=== PATIENT | female | born 1980 | race Two or more races ===

== ENCOUNTER 2018-10-11 07:42 | Inpatient (IN) | payer OTHER ==
[~2018-10-11] VITALS: Ht 162.6 cm; Wt 90.7 kg
[2018-10-11] MEDS ORDERED: IV NORMAL SALINE 1,000ML 1,000 ML IV SCH (08:11)
[2018-10-11] MEDS ORDERED: ONDANSETRON PF 4 MG/2 ML VIAL. IV ONE (08:15)
[2018-10-11] MEDS ORDERED: ASPIRIN 81 MG TAB.CHEW PO ONE (08:15)
--- NOTE | 2018-10-11 08:17 | PHYS DOC ---
Past History Past Medical History: Hypothyroid, Other Past Surgical History: No Surgical History Alcohol Use: Occasionally Drug Use: None Adult General Chief Complaint Chief Complaint: CHEST PAIN HPI HPI Patient is a 38 year old female who presents with complaint of right-sided chest pain. Symptoms started approximately 30 minutes prior to arrival. No previous history of similar symptoms. States that she is having dull pain to the right upper chest that radiates to the right shoulder. Patient states that she has associated numbness in the right upper extremity but denies any weakness or swelling. Denies history of similar symptoms. Has history of hypothyroidism and PCOS. No history of smoking. Denies family history of known cardiac disease. Denies any known exacerbating or alleviating factors. Denies any associated shortness of breath, diaphoresis, or nausea. Has not taken any medications for her symptoms. Review of Systems Review of Systems Constitutional: Denies fever or chills [] Eyes: Denies change in visual acuity, redness, or eye pain [] HENT: Denies nasal congestion or sore throat [] Respiratory: Denies cough or shortness of breath [] Cardiovascular: Chest pain, denies edema[] GI: Denies abdominal pain, nausea, vomiting, bloody stools or diarrhea [] : Denies dysuria or hematuria [] Musculoskeletal: Denies back pain or joint pain [] Integument: Denies rash or skin lesions [] Neurologic: Numbness in right upper extremity, denies headache or focal weakness [] All other systems were reviewed and found to be within normal limits, except as documented in this note. Current Medications Current Medications Current Medications Medications (Trade) Dose Ordered Sig/[facility] Start Time Stop Time Status Last Admin Dose Admin Aspirin (Children'S Aspirin) 324 mg 1X ONCE 10/11/18 08:15 10/11/18 08:16 UNV Fentanyl Citrate (Fentanyl 2ml Vial) 50 mcg PRN Q15MIN PRN 10/11/18 08:15 10/12/18 08:14 UNV Ondansetron HCl (Zofran) 4 mg 1X ONCE 10/11/18 08:15 10/11/18 08:16 UNV Sodium Chloride 1,000 ml @ 1,000 mls/hr Q1H 10/11/18 08:11 10/11/18 09:10 UNV Allergies Allergies Allergies Coded Allergies Type Severity Reaction Last Updated Verified No Known Drug Allergies 10/11/18 No Physical Exam Physical Exam Constitutional: Well developed, well nourished, no acute distress, non-toxic appearance. [] HENT: Normocephalic, atraumatic, bilateral external ears normal, oropharynx moist, no oral exudates, nose normal. [] Eyes: PERRLA, EOMI, conjunctiva normal, no discharge. [] Neck: Normal range of motion, no tenderness, supple, no stridor. [] Cardiovascular:Heart rate regular rhythm, no murmur [] Lungs & Thorax: Bilateral breath sounds clear to auscultation [] Abdomen: Bowel sounds normal, soft, no tenderness, no masses, no pulsatile masses. [] Skin: Warm, dry, no erythema, no rash. [] Back: No tenderness, no CVA tenderness. [] Extremities: No tenderness, no cyanosis, no clubbing, ROM intact, no edema. [] Neurologic: Alert and oriented X 3, normal motor function, normal sensory function, no focal deficits noted. [] Current Patient Data Vital Signs Vital Signs Date Time Temp Pulse Resp B/P (MAP) Pulse Ox O2 Delivery O2 Flow Rate FiO2 10/11/18 07:46 98.3 67 18 98 Room Air Lab Results Laboratory Tests Test 10/11/18 08:19 White Blood Count 4.6 x10^3/uL Red Blood Count 4.66 x10^6/uL Hemoglobin 13.6 g/dL Hematocrit 39.8 % Mean Corpuscular Volume 85 fL Mean Corpuscular Hemoglobin 29 pg Mean Corpuscular Hemoglobin Concent 34 g/dL Red Cell Distribution Width 12.4 % Platelet Count 238 x10^3/uL Neutrophils (%) (Auto) 49 % Lymphocytes (%) (Auto) 41 % Monocytes (%) (Auto) 8 % Eosinophils (%) (Auto) 1 % Basophils (%) (Auto) 1 % Neutrophils # (Auto) 2.3 x10^3uL Lymphocytes # (Auto) 1.9 x10^3/uL Monocytes # (Auto) 0.4 x10^3/uL Eosinophils # (Auto) 0.1 x10^3/uL Basophils # (Auto) 0.0 x10^3/uL D-Dimer ([place]) 0.28 mg/L Sodium Level 141 mmol/L Potassium Level 4.1 mmol/L Chloride Level 105 mmol/L Carbon Dioxide Level 30 mmol/L Anion Gap 6 Blood Urea Nitrogen 12 mg/dL Creatinine 0.9 mg/dL Estimated GFR (Cockcroft-Gault) 69.3 BUN/Creatinine Ratio 13 Glucose Level 109 mg/dL Calcium Level 8.8 mg/dL Magnesium Level 1.9 mg/dL Total Bilirubin 0.6 mg/dL Aspartate Amino Transf (AST/SGOT) 19 U/L Alanine Aminotransferase (ALT/SGPT) 33 U/L Alkaline Phosphatase 89 U/L Creatine Kinase 106 U/L Creatine Kinase MB (Mass) 1.1 ng/mL Creatine Kinase MB Relative Index 1.0 % Troponin I Quantitative < 0.017 ng/mL Total Protein 7.4 g/dL Albumin 3.8 g/dL Albumin/Globulin Ratio 1.1 Current Medications Medications (Trade) Dose Ordered Sig/Ad Route PRN Reason Start Time Stop Time Status Last Admin Dose Admin Aspirin (Children'S Aspirin) 324 mg 1X ONCE PO 10/11/18 08:15 10/11/18 08:19 DC 10/11/18 08:31 Fentanyl Citrate (Fentanyl 2ml Vial) 50 mcg PRN Q15MIN PRN IV PAIN GREATER THAN 3/10 10/11/18 08:15 10/12/18 08:14 10/11/18 08:32 Sodium Chloride 1,000 ml @ 1,000 mls/hr Q1H IV 10/11/18 08:11 10/11/18 09:10 DC 10/11/18 08:29 Ondansetron HCl (Zofran) 4 mg 1X ONCE IV 10/11/18 08:15 10/11/18 08:19 DC 10/11/18 08:31 EKG EKG Interpreted by me: Heart rate 67, sinus rhythm, normal intervals, normal axis, no acute ST/T-wave abnormalities present[] Radiology/Procedures Radiology/Procedures [address] [address] IMAGING REPORT Signed PATIENT: EVA ROBIN ACCOUNT: [id number] : 1980 LOCATION: ER AGE: 38 SEX: F EXAM STATUS: REG ER ORD. PHYSICIAN: BO TRAN MD REASON: chest pain PROCEDURE: PORTABLE CHEST 1V Chest radiograph 10/11/2018 8:16 AM INDICATION: Chest pain COMPARISON: None available TECHNIQUE: Portable upright frontal view of the chest is provided. FINDINGS: The cardiomediastinal silhouette is within normal limits. There are no pleural effusions. There is no pulmonary vascular congestion. There is no pneumothorax. The lungs are clear. No significant osseous abnormality is identified. IMPRESSION: No acute cardiopulmonary process. Electronically signed by: Ron Obregon MD (10/11/2018 8:35 AM) [id number] DICTATED AND SIGNED BY: RON OBREGON MD DATE: 10/11/18 0835 CC: HENRY GOLDBERG DO; BO TRAN MD ~ [] Course & Med Decision Making Course & Med Decision Making Pertinent Labs and Imaging studies reviewed. (See chart for details) Patient was given aspirin in the emergency department and started on fentanyl and Zofran. Despite treatment, the patient states that her pain is only slightly better at this time. Initial lab work negative. Heart score is 2. Due to continued active symptoms of unknown etiology, I recommend that the patient be admitted for further workup of etiology of chest pain. I spoke with Dr. Sinclair who accepted care of patient in hospital.[] Dragon Disclaimer Dragon Disclaimer This electronic medical record was generated, in whole or in part, using a voice recognition dictation system. Departure Departure: Impression: Primary Impression: Chest pain Disposition: ADMITTED INPATIENT Admitting Physician: Germaine Sinclair Condition: STABLE Referrals: HENRY GOLDBERG DO (PCP) Problem Qualifiers Primary Impression: Chest pain Chest pain type: unspecified Qualified Codes: R07.9 - Chest pain, unspecified BO TRAN MD Oct 11, 2018 08:17
[2018-10-11 08:36] LABS: BASO % 1 % (0-3); EOS # 0.1 x10^3/uL (0.0-0.7); EOS % 1 % (0-3); HEMATOCRIT 39.8 % (36.0-47.0); HEMOGLOBIN 13.6 g/dL (12.0-15.5); LYMPH # 1.9 x10^3/uL (1.0-4.8); LYMPH % 41 % (24-48); MEAN CORPUSCULAR HEMOGLOBIN 29 pg (25-35); MEAN CORPUSCULAR HGB CONC 34 g/dL (31-37); MEAN CORPUSCULAR VOLUME 85 fL (79-100); MONO # 0.4 x10^3/uL (0.0-1.1); MONO % 8 % (0-9); NEUT # 2.3 x10^3uL (1.8-7.7); NEUT % 49 % (31-73); PLATELET COUNT 238 x10^3/uL (140-400); RED BLOOD COUNT 4.66 x10^6/uL (3.50-5.40); RED CELL DISTRIBUTION WIDTH 12.4 % (11.5-14.5); WHITE BLOOD COUNT 4.6 x10^3/uL (4.0-11.0)
--- NOTE | 2018-10-11 08:38 | RAD ---
Chest radiograph 10/11/2018 8:16 AM INDICATION: Chest pain COMPARISON: None available TECHNIQUE: Portable upright frontal view of the chest is provided. FINDINGS: The cardiomediastinal silhouette is within normal limits. There are no pleural effusions. There is no pulmonary vascular congestion. There is no pneumothorax. The lungs are clear. No significant osseous abnormality is identified. IMPRESSION: No acute cardiopulmonary process. Electronically signed by: Melissa Stewart MD (10/11/2018 8:35 AM) [id number]
[2018-10-11 08:55] LABS: ALBUMIN 3.8 g/dL (3.4-5.0); ALBUMIN/GLOBULIN RATIO 1.1 (1.0-1.7); CALCIUM 8.8 mg/dL (8.5-10.1); CREATININE 0.9 mg/dL (0.6-1.0); GFR 69.3; MAGNESIUM 1.9 mg/dL (1.8-2.4); POTASSIUM 4.1 mmol/L (3.5-5.1); TOTAL BILIRUBIN 0.6 mg/dL (0.2-1.0); TOTAL PROTEIN 7.4 g/dL (6.4-8.2)
[2018-10-11 10:25] LABS: BACTERIA,URINE MOD /HPF (0-FEW); BILIRUBIN,URINE NEG (NEG); CLARITY,URINE CLEAR; COLOR,URINE YELLOW; GLUCOSE,URINE NEG (NEG); NITRITE,URINE NEG (NEG); RBC,URINE 0 /HPF (0-2); SQUAMOUS EPITHELIAL CELL,UR MOD /LPF; UROBILINOGEN,URINE 0.2 mg/dL (0.2 mg/dL)
[2018-10-11 10:32] VITALS: BP 103/64
[2018-10-11] MEDS ORDERED: LEVO200T PO (11:58)
[2018-10-11] MEDS ORDERED: METF500T16 PO (11:58)
[2018-10-11] MEDS ORDERED: ERGO500027 PO (11:58)
[2018-10-11] MEDS ORDERED: OMEG-33 PO (11:58)
[2018-10-11] MEDS: IV NORMAL SALINE 1,000ML 1,000 ML IV SCH (12:59)
[2018-10-11] MEDS: OMEGA-3 FATTY ACIDS/FISH OIL 1,000 MG CAPSULE. PO SCH ×2 (13:01→21:40)
--- NOTE | 2018-10-11 13:03 | HP ---
ADMIT DATE: 10/11/2018 HISTORY OF PRESENT ILLNESS: The patient is a 38-year-old female patient, who came to the Emergency Room complaining of right-sided chest pain that she described as dull, aching 6/10 in severity. It was not associated with nausea, vomiting, diaphoresis or shortness of breath. She also complained of right arm pain that is dropping, that comes and goes, aggravated by standing or movement. Denied any tingling, numbness, or weakness. She was evaluated. There is no history of trauma or fall. She has never had similar episodes of pain like this. She said that she has had a stress test and echo done in either 2016 or 2017 while in [place] and was unremarkable as what seemed to be a syncopal episode. She was evaluated in the Emergency Room and her lab work showed that her cardiac enzyme showed troponin to be less than 0.017. Her D-dimer was unremarkable. Chest x-ray was also unremarkable. Her EKG showed that she was in sinus rhythm with a heart rate of 67 with normal intervals, normal axis, no acute ST-T changes and the patient was admitted to rule out myocardial infarction and to investigate the cause of this atypical presentation of chest pain. PAST MEDICAL HISTORY: Significant for hypothyroidism, polycystic ovary syndrome, obstructive sleep apnea, degenerative disk disease and she is also prediabetic. PAST SURGICAL HISTORY: Significant for hemorrhoidectomy and laparotomy and the course of investigation for infertility. ALLERGIES: She has no known drug allergies. MEDICATIONS: She is currently on following medications: She is on omega 3 fatty acid 1000 mg 3 times a day, metformin 500 mg daily, levothyroxine 225 mcg daily, ergocalciferol, vitamin D2 50,000 international unit once a week. FAMILY HISTORY: She has one brother who is older and healthy. Her mother is still alive at age of 55 and apparently had what seemed to be a TIA and her father is alive at age of 59 is known to have hypertension and type 2 diabetes. SOCIAL HISTORY: She is , has 21-year-old daughter and 19-year-old son. She does not smoke, drink alcohol or use recreational drugs. She works as a federal contractor. REVIEW OF SYSTEMS: The patient denied any blurring of vision, cataract, glaucoma or macular degeneration. Denied any earache, tinnitus or sensorineural deafness. Denied any nosebleeds, stuffy nose or postnasal drip. Denied any sore throat, sore tongue, toothache, hoarseness of voice or difficulty swallowing. Denied any nausea, vomiting, diarrhea or constipation. Denied any hematemesis, melena or hematochezia. Denied any dysuria, frequency or hematuria. Did complain of chest pain mostly in the right side as dull aching, constant. Denied any cough, phlegm or hemoptysis. Denied any chills, rigors, or fever. Denied dizziness, lightheadedness, or vertigo. PHYSICAL EXAMINATION: GENERAL: On arrival to the Emergency Room, she looked well and was clearly in no apparent respiratory distress. There was no pallor, jaundice, cyanosis or thyromegaly. No jugular venous distension. Her left lower extremity is more swollen than the right. VITAL SIGNS: Her heart rate was 67, blood pressure was 108/66, temperature was 98.3, respiratory rate was 18 and oxygen saturation was 98%. HEAD, EYES, EARS, NOSE, AND THROAT: Showed normocephalic, atraumatic. NECK: Supple. HEART: Showed normal first and second heart sounds. No gallop, rub or murmur. CHEST: Clear to auscultation. No crepitation or rhonchi. ABDOMEN: Distended, soft, nontender. NEUROLOGIC: She is awake, alert, responding appropriately. All cranial nerves intact. EXTREMITIES: She moves extremities without difficulty. She ambulates without assistance or assistive devices. LABORATORY DATA: On arrival showed a white cell count 4600, hemoglobin 13.6, hematocrit 39.8, MCV 85 and platelet count of 238,000. Her serum sodium was 141, potassium 4.1, chloride 105, bicarbonate 30, anion gap of 6, BUN 12, creatinine 0.9, estimated GFR was 69 mL per minute. Her glucose 109, calcium was 8.8, magnesium was 1.9. Total bilirubin, AST, ALT, alkaline phosphatase were normal. CK was 106. Troponin was less than 0.017. Total protein was 7.4, albumin was 3.8. ASSESSMENT AND PLAN: In summary, this is a 38-year-old female patient, who was admitted with somewhat atypical chest pain that started when she was sitting in her desk. The pain has two types of pain, one in her left and the right side of the chest, which is dull, constant, pain that she rated about 6/10 in severity. She has also throbbing pain in her right arm that comes and goes. There is no nausea, no vomiting, no shortness of breath, no diaphoresis. The patient was given aspirin and fentanyl and that helped the pain. My plan is to obviously reconcile all her medication given that her left lower extremity is more swollen than the right. We will arrange for her to have venous Doppler ultrasound. I will also arrange for her to have CT angio of the chest. I will decide on further management accordingly. JESSIE SNYDER MD DR: DIANA/stu JOB#: [id number] / [id number]
--- NOTE | 2018-10-11 13:39 | NUR ---
The patient, EVA ROBIN, 38 y/o, F admitted by JESSIE SNYDER MD, was given written information regarding hospital policies, unit procedures and contact persons. Valuables were checked and left with patient at bedside per patient request. Patient prefers to go by the name Pako. Patient is a 38 YOF who was admitted to [address] [place] [address] from [place] following c/o of right sided chest pain. Patient was admitted for observation. Patient has medical history of PCOS, hypothyroidism, pre-diabetic, and sleep apnea in which patient is compliant with CPAP at home. Patient was oriented to unit, meal times, medication regimen, use of call light, use of bed, and hospital visiting times. Patient is alert and oriented x 4, speech is clear, able to make wants and needs known and able to verbalize understanding of others. C/O intermittent pain in right arm on scale of 8 from 1-10. No c/o SOB, no cough present. Respirations are even and unlabored with clear lung sounds throughout all lobes. Patient states she has never smoked. Abdomen is soft and non tender with active bowel sounds in all 4 quadrants, Continent of bowel and bladder. Independent with ambulation, no c/o of dizziness. Patient is cooperative with all cares and no negative moods or behaviors observed. Home medication list has been reviewed with patient at bedside. Patient is on TELE, FULL CODE and has NKDA, NKA. Patient is currently NPO pending completed CT of the chest. Patient is currently resting in bed with call light with in reach.
--- NOTE | 2018-10-11 14:13 | CARD ---
MR#: [id number] Date of Study: 10/11/2018 Ordering Physician: JESSIE SNYDER, Referring Physician: JESSIE SNYDER, Tech: Moriah Hernández [facility] APPROVED REPORT EXAM: Two-dimensional and M-mode echocardiogram with Doppler and color Doppler. Other Information Quality : Technically LimitedHR: 68bpm Rhythm : NSRTechnically limited study due to body habitus. INDICATION Chest Pain 2D DIMENSIONS RVDd2.6 (2.9-3.5cm)Left Atrium(2D)3.0 (1.6-4.0cm) IVSd1.0 (0.7-1.1cm)Aortic Root(2D)2.9 (2.0-3.7cm) LVDd4.4 (3.9-5.9cm)LVOT Diameter2.1 (1.8-2.4cm) PWd0.8 (0.7-1.1cm)LVDs2.9 (2.5-4.0cm) FS (%) 35.4 %SV58.0 ml LVEF(%)65.0 (>50%) M-Mode DIMENSIONS Left Atrium(MM)3.28 (2.5-4.0cm)Aortic Root2.92 (2.2-3.7cm) Aortic Valve AoV Peak Vito.121.5cm/sAoV VTI30.1cm AO Peak GR.5.9mmHgLVOT Peak Vito.112.7cm/s LVOT VTI 25.98cmAO Mean GR.3mmHg ELIAZAR (VMAX)3.88xw4JXM (VTI)2.99cm2 Mitral Valve MV E Bkfrjofy746.3cm/sMV DECEL KOQW884it MV A Jezcgrsv25.1cm/sE/A Ratio1.9 Pulmonary Valve PV Peak Rsicmail80.6cm/s Tricuspid Valve TR P. Tyjsmlek497uh/sRAP OERPYNSE3kfXw TR Peak Gr.76zvLyAPRG02ppNa LEFT VENTRICLE The left ventricle is normal size. There is normal left ventricular wall thickness. The left ventricu lar systolic function is normal and the ejection fraction is within normal range. The Ejection Fracti on is 60-65%. There is grossly normal LV segmental wall motion. The left ventricular diastolic functi on and filling is normal for age. RIGHT VENTRICLE The right ventricle is normal size. There is normal right ventricular wall thickness. The right ventr icular systolic function is normal. ATRIA The left atrium size is normal. The right atrium size is normal. The interatrial septum is intact wit h no evidence for an atrial septal defect or patent foramen ovale as noted on 2-D or Doppler imaging. AORTIC VALVE Not well visualized, probably trileaflet. Doppler and Color Flow revealed no significant aortic regur gitation. There is no significant aortic valvular stenosis. There is no aortic valvular vegetation. MITRAL VALVE The mitral valve is normal in structure and function. There is no evidence of mitral valve prolapse. There is no mitral valve stenosis. Doppler and Color-flow revealed trace mitral regurgitation. TRICUSPID VALVE The tricuspid valve is normal in structure and function. Doppler and Color Flow revealed trace tricus pid regurgitation. The PA pressure was estimated at 22 mmHg. There is no tricuspid valve prolapse or vegetation. There is no tricuspid valve stenosis. PULMONIC VALVE The pulmonic valve is not well visualized. GREAT VESSELS The aortic root is normal in size. The ascending aorta is normal in size. The IVC is normal in size a nd collapses >50% with inspiration. PERICARDIAL EFFUSION There is no evidence of significant pericardial effusion. Critical Notification Critical Value: No <Conclusion> The left ventricular systolic function is normal and the ejection fraction is within normal range. Th e Ejection Fraction is 60-65%. There is grossly normal LV segmental wall motion. Technically difficult study. Signed by : Chun Harvey, Electronically Approved : 10/11/2018 14:12:56
[2018-10-11] MEDS ORDERED: IOHEXOL 350 MG/ML 100 ML VIAL. IV ONE (14:45)
--- NOTE | 2018-10-11 15:44 | RAD ---
PQRS Compliance Statement: One or more of the following individualized dose reduction techniques were utilized for this examination: 1. Automated exposure control 2. Adjustment of the mA and/or kV according to patient size 3. Use of iterative reconstruction technique CT angiography chest with contrast 10/11/2018 2:48 PM INDICATION: Right-sided chest and right upper extremity pain. Shortness of air. COMPARISON: None available TECHNIQUE: Axial CT images of the chest were obtained after the intravenous administration of nonionic contrast. Coronal and sagittal reformats are provided. Maximum intensity projection images of the thoracic vasculature are provided. FINDINGS: The thyroid gland is normal in appearance. There are no pathologically enlarged axillary, mediastinal or hilar lymph nodes. The heart size is within normal limits. No significant pericardial effusion. Thoracic aorta is normal in course and caliber. There is adequate opacification of the pulmonary arterial system. There there are no filling defects within the pulmonary arterial system to suggest acute or chronic pulmonary embolus. There are no suspicious solid noncalcified pulmonary nodules. There are no pulmonary infiltrates. There are no pleural effusions. No pulmonary vascular congestion or pneumothorax. Visualized portions of the upper abdomen are within normal limits. No suspicious osseous lesions are visualized. IMPRESSION: There is no evidence for acute or chronic pulmonary embolism. Electronically signed by: Melissa Stewart MD (10/11/2018 3:41 PM) [id number]
[2018-10-11 16:02] VITALS: BP 98/60
--- NOTE | 2018-10-11 17:58 | EKG ---
[address] [address] Test Date: 2018-10-11 Test Time: 10:41:49 Pat Name: EVA SONGANTIAGODepartment: Room: 119 A Gender: F Schedule Maker: RAYMOND : 1980 Requested By: JESSIE SNYDER Order Number: [id number] Reading MD: Chun Harvey MD Measurements Intervals [place] Rate: 52 P: 0 GA: 174 QRS: 17 QRSD: 82 T: 17 QT: 434 QTc: 406 Interpretive Statements SINUS RHYTHM Electronically Signed On 10-13-2018 11:50:44 CDT by Chun Harvey MD
--- NOTE | 2018-10-11 17:59 | EKG ---
[address] [address] Test Date: 2018-10-11 Test Time: 07:50:22 Pat Name: EVA SONGANTIAGODepartment: Room: 119 A Gender: F Master Control Supervisor: JOCELYN : 1980 Requested By: BO TRAN Order Number: [id number] Reading MD: Chun Harvey MD Measurements Intervals [place] Rate: 67 P: 24 MA: 178 QRS: 14 QRSD: 88 T: 11 QT: 400 QTc: 426 Interpretive Statements SINUS RHYTHM Electronically Signed On 10-13-2018 10:07:51 CDT by Chun Harvey MD
[2018-10-11 19:10] VITALS: BP 92/59
[2018-10-11 23:40] VITALS: BP 106/66
[2018-10-12] MEDS: IV NORMAL SALINE 1,000ML 1,000 ML IV SCH (02:05)
[2018-10-12] MEDS ORDERED: LEVOTHYROXINE 137 MCG TABLET PO SCH (06:00)
[2018-10-12] MEDS ORDERED: LEVOTHYROXINE 88 MCG TABLET PO SCH (06:00)
[2018-10-12 06:09] VITALS: BP 100/61
[2018-10-12] MEDS: OMEGA-3 FATTY ACIDS/FISH OIL 1,000 MG CAPSULE. PO SCH (07:48)
[2018-10-12] MEDS ORDERED: metFORMIN 500 MG TABLET PO SCH (08:00)
--- NOTE | 2018-10-12 08:49 | RAD ---
Left lower extremity venous duplex study 10/12/2018 Clinical History: Lower extremity pain Technique: Using a combination of real time ultrasound imaging and color-flow and pulse Doppler imaging techniques, including spectral analysis, graded compression and augmentation, duplex evaluation of the deep venous system of the left lower extremity was performed. Multiple images were obtained. Findings: There is no sonographic evidence of deep venous thrombosis involving the visualized deep venous structures of the left lower extremity Impression: No evidence of deep venous thrombosis involving the left lower extremity Electronically signed by: Shadi Wright MD (10/12/2018 8:46 AM) [id number]
[2018-10-12 11:04] VITALS: BP 104/64
--- NOTE | 2018-10-12 12:54 | PDOC2 ---
CONSULT Date of Admission DATE: 10/12/18 TIME: 12:25 Reason for Consult: chest pain Problem List Problems Medical Problems: (1) Chest pain Status: Acute History of Present Illness This is a 38 year old female who presented to the ED with complaints of right sided chest and arm pain. She reports initially discomfort was in her right hand but progressed to her upper right arm and right chest. Pain was constant through the night so she decided to seek emergency evaluation. She reports increase in pain with position change but not with exertion. She denies any associated symptoms. She reports this morning she is essentially pain free but does report discomfort with palpation of upper right chest. She denies other episodes of chest pain. She denies congestive symptoms but does report edema in left foot since admission. She reports a remote history of syncope which occurred while sitting at dinner table and for which she was evaluated by cardiology without abnormal results. She denies any recurrent episodes of syncope. She does report occasional episodes of presyncope which she describes as a lightheadedness and tunnel vision with dark spots. She reports these episodes occur with laughing. She denies any significant fatigue or limitations in functional status. Past Medical History MICHAEL with CPAP, GERD, PCOS, hypothyroidism, fatty liver, degenerative disc disease (lumbar) and borderline diabetes Past Surgical History Sx on fallopian tube Family History no premature coronary disease Social History non smoker, no significant ETOH, no illicit drugs Current Medications Current Medications Aspirin (Children'S Aspirin) 324 mg 1X ONCE PO Last administered on 10/11/18 08:31; Start 10/11/18 at 08:15; Stop 10/11/18 at 08:19; Status DC Fentanyl Citrate (Fentanyl 2ml Vial) 50 mcg PRN Q15MIN PRN IV PAIN GREATER THAN 3/10 Last administered on 10/11/18at 08:32; Start 10/11/18 at 08:15; Stop 04/22 at 08:14; Status DC Sodium Chloride 1,000 ml @ 1,000 mls/hr Q1H IV Last administered on 10/11/18at 08:29; Start 10/11/18 at 08:11; Stop 10/11/18 at 09:10; Status DC Ondansetron HCl (Zofran) 4 mg 1X ONCE IV Last administered on 10/11/18at 08:31; Start 10/11/18 at 08:15; Stop 10/11/18 at 08:19; Status DC Vitamin D (Vitamin D3) 50,000 unit WEEKLY PO ; Start 10/18/18 at 09:00 Levothyroxine Sodium (Synthroid) 137 mcg DAILY06 PO Last administered on at 06:32; Start 10/12/18 at 06:00 Metformin HCl (Glucophage) 500 mg DAILYWBKFT PO Last administered on 10/12/18at 07:48; Start 10/12/18 at 08:00 Fish Oil (Fish Oil) 1,000 mg TID PO Last administered on 10/12/18at 07:48; Start 10/11/18 at 14:00 Sodium Chloride 1,000 ml @ 75 mls/hr [id number] IV Last administered on at 02:05; Start 10/11/18 at 12:45 Levothyroxine Sodium (Synthroid) 88 mcg DAILY06 PO Last administered on at 06:32; Start 10/12/18 at 06:00 Iohexol (Omnipaque 350 Mg/ml) 100 ml 1X ONCE IV Last administered on 10/11/18at 15:03; Start 10/11/18 at 14:45; Stop 10/11/18 at 14:49; Status DC Active Scripts Active Reported Vitamin D2 (Ergocalciferol (Vitamin D2)) 50,000 Unit Capsule 1 Cap PO WEEKLY [place] 3 1,000 Mg Softgel ([place]-3 Fatty Acids/Fish Oil) 1 Each Capsule 1,000 Each PO TID Metformin Hcl 500 Mg Tablet 1 Tab PO DAILYAC Synthroid (Levothyroxine Sodium) 200 Mcg Tablet 225 Mcg PO DAILY06 Allergies: Coded Allergies: No Known Drug Allergies (Unverified , 10/11/18) Review of System as per HPI or negative General: Alert, Oriented X3, Cooperative, No acute distress HEENT: Atraumatic, EOMI, Mucous membr. moist/pink, Other (No carotid bruits) Lungs: Clear to auscultation, Normal air movement Heart: Normal S1, Normal S2, Other (no significant murmurs, no gallops, no clicks or rubs) Abdomen: Normal bowel sounds, Soft, No tenderness Extremities: No clubbing, No cyanosis, Normal pulses, Other (minimal non pitting edema left foot) Neuro: Normal speech, Strength at 5/5 X4 ext Psych/Mental Status: Mental status NL, Mood NL VITALS Vital Signs Date Time Temp Pulse Resp B/P (MAP) Pulse Ox O2 Delivery O2 Flow Rate FiO2 10/12/18 11:04 98.4 62 20 104/64 (77) 96 Room Air Labs Laboratory Tests Test 10/11/18 08:19 10/11/18 09:54 10/11/18 14:25 10/11/18 20:25 White Blood Count 4.6 x10^3/uL (4.0-11.0) Red Blood Count 4.66 x10^6/uL (3.50-5.40) Hemoglobin 13.6 g/dL (12.0-15.5) Hematocrit 39.8 % (36.0-47.0) Mean Corpuscular Volume 85 fL (79-100) Mean Corpuscular Hemoglobin 29 pg (25-35) Mean Corpuscular Hemoglobin Concent 34 g/dL (31-37) Red Cell Distribution Width 12.4 % (11.5-14.5) Platelet Count 238 x10^3/uL (140-400) Neutrophils (%) (Auto) 49 % (31-73) Lymphocytes (%) (Auto) 41 % (24-48) Monocytes (%) (Auto) 8 % (0-9) Eosinophils (%) (Auto) 1 % (0-3) Basophils (%) (Auto) 1 % (0-3) Neutrophils # (Auto) 2.3 x10^3uL (1.8-7.7) Lymphocytes # (Auto) 1.9 x10^3/uL (1.0-4.8) Monocytes # (Auto) 0.4 x10^3/uL (0.0-1.1) Eosinophils # (Auto) 0.1 x10^3/uL (0.0-0.7) Basophils # (Auto) 0.0 x10^3/uL (0.0-0.2) D-Dimer ([place]) 0.28 mg/L (0.00-0.50) Sodium Level 141 mmol/L (136-145) Potassium Level 4.1 mmol/L (3.5-5.1) Chloride Level 105 mmol/L (98-107) Carbon Dioxide Level 30 mmol/L (21-32) Anion Gap 6 (6-14) Blood Urea Nitrogen 12 mg/dL (7-20) Creatinine 0.9 mg/dL (0.6-1.0) Estimated GFR (Cockcroft-Gault) 69.3 BUN/Creatinine Ratio 13 (6-20) Glucose Level 109 mg/dL (70-99) Calcium Level 8.8 mg/dL (8.5-10.1) Magnesium Level 1.9 mg/dL (1.8-2.4) Total Bilirubin 0.6 mg/dL (0.2-1.0) Aspartate Amino Transf (AST/SGOT) 19 U/L (15-37) Alanine Aminotransferase (ALT/SGPT) 33 U/L (14-59) Alkaline Phosphatase 89 U/L (46-116) Creatine Kinase 106 U/L (26-192) Creatine Kinase MB (Mass) 1.1 ng/mL (0.0-3.6) Creatine Kinase MB Relative Index 1.0 % (0-4) Troponin I Quantitative < 0.017 ng/mL (0-0.055) < 0.017 ng/mL (0-0.055) < 0.017 ng/mL (0-0.055) Total Protein 7.4 g/dL (6.4-8.2) Albumin 3.8 g/dL (3.4-5.0) Albumin/Globulin Ratio 1.1 (1.0-1.7) Triglycerides Level 265 mg/dL (0-150) Cholesterol Level 203 mg/dL (0-200) LDL Cholesterol, Calculated 117 mg/dL (0-100) VLDL Cholesterol, Calculated 53 mg/dL (0-40) Non-HDL Cholesterol Calculated 170 mg/dL (0-129) HDL Cholesterol 33 mg/dL (40-60) Cholesterol/HDL Ratio 6.0 Urine Collection Type Unknown Urine Color Yellow Urine Clarity Clear Urine pH 5.5 Urine Specific [place] 1.025 Urine Protein Neg (NEG-TRACE) Urine Glucose (UA) Neg mg/dL (NEG) Urine Ketones (Stick) Neg mg/dL (NEG) Urine Blood Neg (NEG) Urine Nitrite Neg (NEG) Urine Bilirubin Neg (NEG) Urine Urobilinogen Dipstick 0.2 mg/dL (0.2 mg/dL) Urine Leukocyte Esterase Neg (NEG) Urine RBC 0 /HPF (0-2) Urine WBC 1-4 /HPF (0-4) Urine Squamous Epithelial Cells Mod /LPF Urine Bacteria Mod /HPF (0-FEW) Urine Mucus Marked /LPF Images Echo - The left ventricular systolic function is normal and the ejection fraction is within normal range. The Ejection Fraction is 60-65%. There is grossly normal LV segmental wall motion. Technically difficult study. CXR - non acute process CTA chest - No PE, no acute process left LE venous duplex - neg for DVT EKG - sinus bradycardia without acute ischemic changes Assessment/Plan 1. Chest pain, atypical - NM ruled out. No acute ischemic changes on EKG. Pain most likely radicular in origin. Ambulate and if no increase/reoccurrence, suggest outpatient stress echo. No beta blockers due to bradycardia. 2. recurrent pre syncope - most consistent with gelastic or neurocardiogenic - suggest outpatient MCT to eval bradycardia and for any arrhythmias. Encourage physical counter measures. Outpatient stress echo. 3. dyslipidemia - elevated Tgs - check A1c, encouraged reduction of carb consumption, add fish oil (consider vascepa), low HDL - educated on dietary measures and recommend increase exercise. 4. pre diabetes - check A1c and mgmt per PCP 5. MICHAEL - CPAP at home, continue mgmt per PCP MIMI KUMAR SR. DIRECTOR PRODUCT MANAGEMENT Oct 12, 2018 12:54
--- NOTE | 2018-10-12 13:06 | NUR ---
Discharge Note: [facility] Discharge instructions and discharge home medications reviewed with Patient and a copy given. All questions have been answered and understanding verbalized. The following instructions and handouts were given: Hypercholesterolemia, AIC, Chest pain. Discontinued lines and drains: D/C IV in LFA, tip in tact. Pressure dressing applied. No evidence of infection present. Patient discharged to home at 1300.
--- NOTE | 2018-10-12 14:09 | DS ---
DATE OF DISCHARGE: 10/12/2018 HOSPITAL COURSE: The patient is a 38-year-old female patient who was admitted with chest pain as well as throbbing pain in her right arm that is aggravated by movement. Her chest pain is dull, aching that is not associated with any nausea, vomiting, diaphoresis, shortness of breath. She was admitted and has had 3 sets of cardiac enzymes that basically showed the troponin to be less than 0.017. She does have history of degenerative disk of lumbar spine, we believe that she has also probably cervical degenerative disk disease and most likely right-sided cervical radiculopathy to explain her particular right arm pain. Her triglycerides and cholesterol were high and although she stated that she is prediabetic, we believe that she probably has diabetes, although we have only few measurement of her blood sugar. We did order hemoglobin A1c, the results of which is still pending at the time of this dictation and as her myocardial infarction was ruled out and the upper leather cutter recommended outpatient monitoring as well as stress test, a decision was made to discharge her home with the plan also to arrange for her to have an MRI of her cervical spine and to be seen by neurosurgeon. PHYSICAL EXAMINATION: GENERAL: When I saw her this afternoon, she looked well and was clearly in no apparent respiratory distress. No pallor, jaundice, cyanosis, or thyromegaly. No jugular venous distension. No lower limb edema. VITAL SIGNS: Her heart rate was 62, blood pressure 104/64, temperature was 98.4, respiratory rate 20, and oxygen saturation was 96% on room air. HEAD, EYES, EARS, NOSE, AND THROAT: Showed normocephalic, atraumatic. NECK: Supple. HEART: Showed normal first and second heart sounds. No gallop, rub, or murmur. CHEST: Clear to auscultation. No crepitation or rhonchi. ABDOMEN: Distended, soft, nontender. NEUROLOGIC: She is awake, alert, responding appropriately. All cranial nerves intact. EXTREMITIES: She moves extremities without difficulty. She ambulates without assistance or assistive devices. Her intake was 2600, no output was recorded. LABORATORY DATA: Her lab work this morning showed that her 2 more sets of cardiac enzymes showed troponin to be less than 0.017. Her fasting lipid profile showed serum triglycerides to be 265, total cholesterol 203, LDL cholesterol 117, VLDL was 53, and HDL cholesterol 33 and the ratio of cholesterol to HDL cholesterol ratio was 66. Her white cell count was 4600, hemoglobin 13.6, hematocrit 39.8, MCV 85, and platelet count 238,000. ASSESSMENT: 1. Chest pain, atypical, myocardial infarction ruled out. The patient has 3 sets of cardiac enzymes show troponin to be less than ____. 2. Right arm pain consistent with right-sided cervical radiculopathy. 3. The patient is known to have hypothyroidism. 4. Polycystic ovary syndrome. 5. Obstructive sleep apnea. 6. Mixed hyperlipidemia, likely due to poorly controlled blood sugar. PLAN: The patient will be discharged. She will have outpatient heart monitor and a nuclear stress test after obtaining referral from her primary care physician. She will also have an MRI of her cervical spine and be seen by a neurosurgeon at [facility]. JESSIE SNYDER MD DR: DIANA/stu JOB#: [id number] / [id number]
[2018-10-12 23:06] LABS: HEMOGLOBIN A1C 5.9 % (4.8-5.6)
[2018-10-18] MEDS ORDERED: CHOLECALCIFEROL (VITAMIN D3) 50,000 UNIT CAPSULE PO SCH (09:00)
== END 2018-10-12 13:09 | disposition home or self-care (01) | DRG 552 ==
LOC: ER 07:42 → 1 SOUTH 09:30 → OBSVTOIN 12:58
PROVIDERS: ADMIT Internal Medicine; ATTEND Internal Medicine
DX: M50.10 Cervical disc disorder with radiculopathy, unspecified cervical region (principal); E03.9 Hypothyroidism, unspecified; E28.2 Polycystic ovarian syndrome; G47.33 Obstructive sleep apnea (adult) (pediatric); M51.36 Other intervertebral disc degeneration, lumbar region; K21.9 Gastro-esophageal reflux disease without esophagitis; K76.0 Fatty (change of) liver, not elsewhere classified; R07.89 Other chest pain; E78.2 Mixed hyperlipidemia; Z82.49 Family history of ischemic heart disease and other diseases of the circulatory system; Z83.3 Family history of diabetes mellitus
CPT/HCPCS: 36415; 71045; 71275; 80053; 80061; 81001; 82553; 83036; 83735; 84484; 85025; 85379; 87086; 93005; 93306; 93971; 96361; 96374; 96375; G0378; G0379; J2405; J3010; Q9967; 99285-25; J7030

== ENCOUNTER 2019-06-12 06:50 | Emergency (ER) | payer OTHER ==
[~2019-06-12] VITALS: Ht 162.6 cm; Wt 93.9 kg
[~2019-06-12 06:50] MED LIST: ERGO500027 PO; LEVO200T PO; METF500T16 PO; OMEG-33 PO
--- NOTE | 2019-06-12 07:17 | PHYS DOC ---
Past History Past Medical History: Hypothyroid, Other Past Surgical History: No Surgical History Alcohol Use: Occasionally Drug Use: None Adult General Chief Complaint Chief Complaint: LOWER EXT PAIN HPI HPI Patient is a 38-year-old female who presents to the emergency department for evaluation. Over the past 5-7 days, she has developed a small subcutaneous nodule on her anterior proximal leo, just distal to the patellar tendon, which has become somewhat sore and irritated over the past few days. She denies any leg swelling or calf pain, or any known injury. Palpation as well as walking seem to irritate the area. There are no alleviating factors to her symptoms. She has no other complaints. She denies any fevers or chills. Review of Systems Review of Systems Constitutional: Denies fever or chills [] Respiratory: Denies cough or shortness of breath [] Musculoskeletal: Denies back pain or joint pain [] Integument: Denies rash or skin lesions, except as noted in the history of present illness [] Neurologic: Denies headache, focal weakness or sensory changes [] Allergies Allergies Allergies Coded Allergies Type Severity Reaction Last Updated Verified No Known Drug Allergies 06/12/19 No Physical Exam Physical Exam PHYSICAL EXAM: HEENT: Atruamatic NECK: Supple, normal ROM, non-tender. CARDIAC: Regular Rate and Rhythm LUNGS: Clear Bilaterally EXTREMITIES: There is an approximately 1 cm soft subcutaneous nodular texture on the anterior proximal leo, with what appears to be a small puncture wound in the center of the skin just overlying the area. There is no surrounding erythema, warmth, other skin lesions noted. There is no calf or thigh tenderness to palpation, or any tenderness to palpation in the tract of the venous structures. There is no pedal edema. Distal PMS are intact. The bony structures of the knee are unremarkable, there is no effusion and normal range of motion is present. EKG EKG [] Radiology/Procedures Radiology/Procedures [] Course & Med Decision Making Course & Med Decision Making I discussed the uncertain etiology of the patient's symptoms, although given the small puncture wound a small insect bite is suspected. I discussed expectant management and use of topical [id number] antibiotic ointment, the need for close follow-up and return precautions if symptoms persist or worsen. The texture does not have that of a bony structure I do not think x-ray is indicated at this time, given the lack of injury by history. The patient's exam and complaints are not consistent with a DVT or SVT. Dragon Disclaimer Dragon Disclaimer This electronic medical record was generated, in whole or in part, using a voice recognition dictation system. Departure Departure: Impression: Primary Impression: Skin lesion Disposition: HOME, SELF-CARE Condition: STABLE Referrals: HENRY GOLDBERG DO (PCP) Patient Instructions: Insect Bite Additional Instructions: Apply topical antibiotic ointment to the affected area. If symptoms persist, further evaluation will be warranted. Please contact your primary care provider for an outpatient follow-up appointment. JAEL COHN MD Jun 12, 2019 07:17
[2019-06-12 07:35] VITALS: BP 116/78
== END 2019-06-12 07:39 | disposition home or self-care (01) ==
LOC: ER 06:50
DX: S81.832A Puncture wound without foreign body, left lower leg, initial encounter (principal); L98.8 Other specified disorders of the skin and subcutaneous tissue; E03.9 Hypothyroidism, unspecified; X58.XXXA Exposure to other specified factors, initial encounter; Y93.89 Activity, other specified; Y92.89 Other specified places as the place of occurrence of the external cause; Y99.8 Other external cause status
CPT/HCPCS: 99281